=== PATIENT | female | born 1990 | race Hispanic/Latino ===

== ENCOUNTER 2020-04-08 08:00 | Inpatient (IN) | payer OTHER ==
[2020-04-08] MEDS ORDERED: CARBOPROST TROME 250 MCG/ML IM PRN (15:26)
[2020-04-08] MEDS ORDERED: PROMETHAZINE INJ 25 MG/ML AMP IM PRN (15:26)
[2020-04-08] MEDS ORDERED: METHYLERGONOVINE 0.2MG/ML AMP IM PRN (15:26)
[2020-04-08] MEDS ORDERED: Ringers Lactate 1,000 ML IV PRN (15:26)
[2020-04-08] MEDS ORDERED: BUTORPHANOL 1 MG/ML INJ IV PRN (15:26)
[2020-04-08] MEDS ORDERED: Ringers Lactate 1,000 ML IV SCH (16:00)
[2020-04-08] MEDS ORDERED: OXYTOCIN/LR 20 UNIT/1,000 ML BAG IV SCH (16:00)
[2020-04-08] MEDS ORDERED: miSOPROStoL 100 MCG TAB ONE (17:04)
--- NOTE | 2020-04-09 10:43 | RAD REPORT ---
EXAM DESCRIPTION: RAD - Abdomen 1 View (KUB) - 04/09/2020 10:34 am CLINICAL HISTORY: /assess presentation FINDINGS: Cephalic presentation. Spine maternal left
[2020-04-09] MEDS ORDERED: CARBOPROST TROME 250 MCG/ML IM PRN (11:20)
[2020-04-09] MEDS ORDERED: PROMETHAZINE INJ 25 MG/ML AMP IM PRN (11:20)
[2020-04-09] MEDS ORDERED: BUTORPHANOL 1 MG/ML INJ IV PRN (11:20)
[2020-04-09] MEDS ORDERED: METHYLERGONOVINE 0.2MG/ML AMP IM PRN (11:20)
[2020-04-09] MEDS ORDERED: Ringers Lactate 1,000 ML IV PRN (11:20)
[2020-04-09] MEDS ORDERED: OXYTOCIN/LR 20 UNIT/1,000 ML BAG IV SCH (12:00)
[2020-04-09] MEDS ORDERED: Ringers Lactate 1,000 ML IV SCH (12:00)
[2020-04-09] MEDS ORDERED: HYDRALAZINE HCL 20 MG/ML VIAL IV ONE (12:05)
[2020-04-09 12:08] LABS: Urine Appearance CLOUDY; Urine Bilirubin NEGATIVE (NEG); Urine Blood NEGATIVE (NEG); Urine Color YELLOW; Urine Glucose NEGATIVE (NEG); Urine Protein 2+ (NEG); Urine Urobilinogen 0.2 mg/dL (0.2-1.0)
[2020-04-09 12:08] LABS: Basophils % 0.5 % (0-1.3); Hematocrit 37.3 % (36.0-45.0); Lymphocytes % 16.4 % (15.3-44.8); MPV 10.4 fL (7.6-11.3); RBC Red Blood Cell Count 4.26 M/uL (3.86-4.86)
[2020-04-09 12:25] LABS: Urine Microscopic Reflex ORDER UMIC
[2020-04-09 12:30] LABS: Urine Bacteria >50 /HPF (<20); Urine Culture Reflex Order REFLEXED; Urine RBC NONE SEEN /HPF (NONE SEEN); Urine Urothelial Cells <5 /HPF (NONE SEEN)
[2020-04-09 12:48] VITALS: BMI 39.3
[2020-04-09] MEDS ORDERED: LABETALOL 20 MG/4ML SYRINGE IV ONE ×2 (13:11→23:52)
[2020-04-09] MEDS ORDERED: MAGNESIUM SULF/STERILE WATER 1,000 ML IV SCH (14:00)
--- NOTE | 2020-04-09 15:44 | PREOPHP ---
Date of Admission: 04/09/2020 History Of Present Illness: This is a 29-year-old 2, para 1, diabetic during the , seen in consultation with Dr. Estrada who recommended delivery between 38 and 39 weeks. The patient is currently 38 and 1 or 2. She was breech in the office the other day, but overnight has switched to vertex and she has also progressed to 3 cm, although the cervix is very posterior. We have sent her to Labor and Delivery. She is on Pitocin. As soon as the baby gets a little bit further down, we wi ll rupture membranes and then deliver before the baby can switch again. Family History: Maternal uncle with brain cancer. Otherwise, really noncontributory. Allergies: NO ALLERGIES. Medications: vitamins prior to admission. Social History: Does not smoke. Physical Examination: HEENT: Clear. Pupils equal, round, reactive to light and accommodation. Conjunctivae well perfused . No oral, lingual, or buccal lesions. Chest and Lungs: Clear. Heart: Without murmurs, thrills, heaves, rubs. Breasts: Without masses on previous visits. Abdomen is term size. Baby is vertex at this point. Full labor talk given. Anticipate delivery asa etime later today. JESS/EMELIA Voice ID: [id number]
[2020-04-09] MEDS ORDERED: INFLUENZA VACCINE (for 3y+) 0.5 ML DOSE IMVAC ONE (16:00)
--- NOTE | 2020-04-09 17:21 | PN ---
Protein came back from the lab +2 protein that with her elevated blood pressure. She has minimal ernesto ma but some trace. We will start her on magnesium sulfate 4 g, loading dose 2 g an hour maintenance dose, get a level at 8 p.m. Full discussion with the patient has been. This is her second together, so this is unusual, but she knows that this is the most reasonable course of action consid ering what we are dealing with. She has absolutely no DELIVERY LEAD symptoms. JESS/MODPortia Voice ID: [id number] Report ID: [id number]
[2020-04-09] MEDS ORDERED: OXYTOCIN/LR 20 UNIT/1,000 ML BAG IV ONE (19:50)
[2020-04-09] MEDS ORDERED: FENTANYL CITR 100 MCG/2 ML IV ONE (21:27)
[2020-04-09] MEDS ORDERED: ROPIVACAINE HCL 100 ML IV PRN (21:27)
[2020-04-09] MEDS ORDERED: ROPIVACAINE HCL 0.2% 20ML AMP IV ONE (21:29)
[2020-04-09] MEDS ORDERED: LIDOCAINE 1% MPF 30 ML VIAL ONE (23:33)
[2020-04-09] MEDS ORDERED: CARBOPROST TROME 250 MCG/ML IM ONE (23:33)
[2020-04-09] MEDS ORDERED: METHYLERGONOVINE 0.2MG/ML AMP IM ONE (23:33)
[2020-04-09 23:35] LABS: RPR (Rapid Plasma Reagin) NON-REACT (NON-REACT)
[2020-04-09] MEDS ORDERED: LABETALOL HCL 100 MG/20 ML IV PRN (23:42)
[2020-04-10] MEDS ORDERED: Oxycodone HCl/Acetaminophen 1 TAB TAB PO PRN (00:37)
[2020-04-10] MEDS ORDERED: DOCUSATE NA/SENNA CONC 1 TAB PO PRN (00:37)
[2020-04-10] MEDS ORDERED: DIPHENHYDRAMINE 25 MG TAB/CAP PO PRN (00:37)
[2020-04-10] MEDS ORDERED: ACETAMINOPHEN 500 MG TAB PO PRN (00:37)
[2020-04-10] MEDS ORDERED: BISACODYL 10 MG RECTAL SUPP PR PRN (00:37)
[2020-04-10] MEDS ORDERED: IBUPROFEN 200 MG TAB PO PRN (00:37)
[2020-04-10] MEDS ORDERED: HEPATITIS B VACCINE (PEDI) 10 MCG/0.5 ML SYR IMVAC ONE (00:54)
[2020-04-10] MEDS ORDERED: OXYTOCIN/LR 20 UNIT/1,000 ML BAG IV SCH (01:00)
[2020-04-10] MEDS ORDERED: CEFAZOLIN/NS 1gm 1 GM/50 ML BAG IVPB ONE (01:19)
[2020-04-10] MEDS ORDERED: cloNIDine HCL 0.1 MG TAB PO ONE (01:20)
[2020-04-10] MEDS ORDERED: CEFAZOLIN/SWI 1gm 1 GM/10 ML SYR ONE (01:25)
[2020-04-10] MEDS ORDERED: CEFAZOLIN/SWI 1gm 1 GM/10 ML SYR IV ONE (01:30)
[2020-04-10] MEDS: PHENOBARBITAL 32.4 MG TABLET PO SCH ×3 (01:38→17:06)
[2020-04-10] MEDS: Oxycodone HCl/Acetaminophen 1 TAB TAB PO PRN (01:38)
[2020-04-10] MEDS ORDERED: PHENOBARBITAL 32.4 MG TABLET PO ONE (01:44)
--- NOTE | 2020-04-10 02:37 | PN ---
Patient is 7 cm, but still the baby is fairly high. It is difficult to tell the position of the baby . She does not have any back pain. She had an epidural but is not extremely comfortable at this poi nt. She is on 22 milliunits and yodit very firmly every 2-3 minutes. We will institute pelvic rocks. Baby looks good. The patient said her first baby was over 8 pounds and it was a very rapid delivery. Exactly what is holding the baby up at this point is difficult to say. We will see what t ype of progress we will make in the next hour or two, but I would expect rapid descent and delivery o f the baby and, if we do not get rapid progress, we may end up with a . Full discussion with the patient and . JESS/EMELIA Voice ID: [id number] Report ID: [id number]
--- NOTE | 2020-04-10 02:49 | OP ---
Surgeon: Edgardo Clinton MD Lynda Maddox is a 29-year-old 2, para 1, gestational diabetic, followed in consultation w aneesh Stark, high-risk analyst at [facility]. The patient was scheduled for induction at 38 weeks, but the baby was breech. The next day, the baby was vertex and we decided to proceed at that point. She was 3 cm on admission, but very posterior. Rupture of membranes at appro ximately 3.5 cm. Clear fluid. The patient progressed slowly during the day. Received Stadol 1 mg I V, Phenergan 25 mg IM. Later she requested and received epidural anesthesia, but this did not really work very effectively. After achieving 7-8 cm, the patient went rapidly to complete. Second stage of about 20 minutes. Spontaneous vaginal delivery of an 8 pounds 2 ounces female, Apgars 8 and 9. M ild shoulder dystocia. Flexion of the legs affected delivery. One small first-degree laceration jus t below the clitoris. Two stitches, 2-0 chromic. Local infiltration. One [id number] stitch at the posterior fourchette. Schultze delivery of the placenta, which inspected and noted to be large, but otherwise normal and intact. Estimated blood loss is thus far 250 cc or less. The patient devel oped hypertension and proteinuria. Minimal edema. No CRYOGENICS REPAIRER symptoms, but was started on magnesium sul fate. She had to be given Apresoline 2 times during the labor for systolics that exceeded 165. As s oon as the baby was born, first blood pressure was 121/84. We will start patient on phenobarbital, b ut we will not go back to the magnesium sulfate. The patient tolerated all procedures well. Final Diagnoses: Intrauterine gestation, 38 weeks 2 days at time of delivery. Epidural anesthesia. Preeclampsia, now resolving. Mild shoulder dystocia. Nuchal cord x1. NBC/MODL Voice ID: [id number] Report ID: [id number]
--- NOTE | 2020-04-10 09:04 | PN ---
Vital signs are good. Blood pressure is basically back to normal. 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 Full dismissal instructions given. She of course will not go home until Pediatrics dismisses the Baby Lynda, prob ably be not until late tomorrow afternoon or evening. She is planning on IUD for control in e future. Tdap and flu shots offered. She is Rh positive, immune to rubella. Negative COVID. Nega tive strep. No post epidural problems. We will go over dismissal instructions again tomorrow, but a t this point, no complaints or problems, doing well. JESS/MODL Voice ID: [id number] Report ID: [id number]
[2020-04-10] MEDS: miSOPROStoL 100 MCG TAB PO SCH (20:30)
[2020-04-11] MEDS: Oxycodone HCl/Acetaminophen 1 TAB TAB PO PRN (00:09)
[2020-04-11] MEDS: miSOPROStoL 100 MCG TAB PO SCH ×4 (01:48→20:10)
[2020-04-11] MEDS ORDERED: cloNIDine HCL 0.1 MG TAB ONE ×2 (02:43→05:22)
[2020-04-11 04:26] LABS: Absolute Lymphocytes (CBC) 4.3 K/uL (0.7-4.9); Basophils % 0.5 % (0-1.3); Hematocrit 32.6 % (36.0-45.0); Lymphocytes % 23.6 % (15.3-44.8); RBC Red Blood Cell Count 3.64 M/uL (3.86-4.86)
[2020-04-11 04:45] VITALS: O2SAT 99
[2020-04-11 04:47] LABS: ALT/SGPT 49 U/L (12-78); AST/SGOT 87 U/L (15-37); Alkaline Phosphatase 122 U/L (45-117); BUN Blood Urea Nitrogen 9 mg/dL (7-18); Bicarbonate 26 mmol/L (21-32); Bilirubin Total 0.2 mg/dL (0.2-1.0); CKMB Creatine Kinase MB 6.7 ng/mL (0.3-3.6); Glucose Level 110 mg/dL (74-106); Potassium 4.6 mmol/L (3.5-5.1); Protein, Total 6.2 g/dL (6.4-8.2); Sodium Level 138 mmol/L (136-145)
[2020-04-11 04:59] LABS: Blood Morphology Comment NOT SEEN (NOT SEEN); Platelet Estimate ADEQ
[2020-04-11] MEDS ORDERED: cloNIDine HCL 0.1 MG TAB PO ONE (05:16)
--- NOTE | 2020-04-11 05:29 | EKG ---
Test Date: 2020-04-11 Test Time: 03:53:51 Clinical Mental Health Counselor: RT MEASUREMENT RESULTS: Intervals: Rate: 71 PA: 126 QRSD: 70 QT: 378 QTc: 410 [place]by: P: 23 PA: 126 QRS: 23 T: 43 INTERPRETIVE STATEMENTS: Normal sinus rhythm Normal ECG No previous ECG available for comparison Electronically Signed On 04-11-20 05:28:39 CDT by Garry Sanches
[2020-04-11] MEDS: LABETALOL HCL 100 MG TAB PO SCH ×2 (06:00→17:40)
[2020-04-11] MEDS: PHENOBARBITAL 32.4 MG TABLET PO SCH ×3 (06:05→18:00)
[2020-04-11] MEDS ORDERED: PHENOBARBITAL 32.4 MG TABLET PO ONE (06:18)
--- NOTE | 2020-04-11 08:44 | PN ---
The patient is yodit regularly. She is now 3.5 cm, ruptured membranes, clear fluid. Baby well applied at -1 station. Since admission, patient has had elevated systolic blood pressures which wer e normal in the office. Dipstick here in Labor and Delivery showed just trace protein. Urine specim en was sent and we are awaiting the protein from the laboratory. She has no edema. Her reflexes are normal. She has no COGNOS symptoms. We have given her 2 doses of Apresoline 5 mg, which momentarily b rings her blood pressure down, but then it goes right back to the 169 systolic range. If her blood p ressure remains elevated in the next 20 minutes, we will give her labetalol 10 mg and see how that af fects her. If the urine from the laboratory comes back showing protein, we may start her on magnesiu m sulfate, but that of course would not correct her blood pressure. At this point, I clinically doub t that she has preeclampsia, but we will certainly continue to monitor. I think she will make more r apid progress now that we have ruptured membranes. Full discussion with the patient has been. JESS/EMELIA Voice ID: [id number] Report ID: [id number]
--- NOTE | 2020-04-11 10:55 | PN ---
Delivered yesterday of an 8 pounds 2 ounces female uneventfully. Had 2 first-degree lacerations, 1 r equiring 2 stitches, 1 requiring 1 stitch. The patient developed hypertension and proteinuria. Had minimal edema. Reflexes were always normal. 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 however b lood pressures began to spike after they had initially been quite normal. The patient had been given Apresoline during the labor and after delivery clonidine x1. Last night, she reported having chest pains. She had a small hemorrhage in the right eye. The rapid response team was called. Her EKG wa s normal. Chest x-ray apparently has been read as normal. All of her labs were normal except a D-di handy, which of course would be elevated in a post delivery patient. She has had no pains in her legs and no shortness of breath. At this point, it does not appear that the patient has had any cardiac e vent nor she had pulmonary embolus, but blood pressure within the last 2 hours spiked to 190 systolic . She was again given clonidine and now her blood pressure is 121. She has no complaints. Says grzegorz t her chest does not hurt this morning. I have reinstituted the phenobarbital. I have ordered labet alol 100 mg twice a day, but we will hold off on that until her blood pressures begin to rise somewha t. The patient will probably be kept on phenobarbital for several days. The baby is under the bili lights, which would be expected as there was mild shoulder dystocia and some bruising of the baby's f bijal. The patient herself though is stable this morning. She has been evaluated by the rapid respons e team and they have no diagnosis other than what I have stated probably preeclampsia. Continue to m onitor today. Possibly home tomorrow. JESS/EMELIA Voice ID: [id number] Report ID: [id number]
--- NOTE | 2020-04-11 13:04 | RAD REPORT ---
EXAM DESCRIPTION: RAD - Chest Single View - 04/11/2020 4:29 am CLINICAL HISTORY: The patient is 29 years old and is Female; chest pain TECHNIQUE: Single portable upright view of the chest. COMPARISON: No relevant prior studies available. FINDINGS: Lungs: Unremarkable. No consolidation. Pleural space: Unremarkable. No pneumothorax. Heart: Unremarkable. No cardiomegaly. Mediastinum: Unremarkable. Bones/joints: No acute fracture visualized. Upper abdomen: No free air in the visualized upper abdomen. IMPRESSION: No acute cardiopulmonary process identified. Electronically signed by: Jacquie Brar MD 04/11/2020 4:41 AM CDT Due to temporary technical issues with the PACS/Fluency reporting system, reports are being signed by the in house radiologist without review as a courtesy to ensure prompt reporting. The interpreting r adiologist is fully responsible for the content of the report.
[2020-04-12] MEDS: miSOPROStoL 100 MCG TAB PO SCH ×2 (04:00)
[2020-04-12] MEDS: PHENOBARBITAL 32.4 MG TABLET PO SCH ×2 (06:00)
--- NOTE | 2020-04-12 09:03 | DS ---
Hospital Course: Lynda Maddox is a 29-year-old female 2, para 1, followed antepartum wit h association with Dr. Stark, high-market risk manager at [facility] for diabetes. Heladio landaverde was noted to be breech in the office, but the next day was noted to be vertex, was sent to Labo r and Delivery at 38 weeks and 2 days for induction to prevent section. Patient delivered o f an 8 pounds 2 ounces female, Apgars 8, 9. Epidural anesthesia supplemented with local as the epidu ral was not working very well. Two small first-degree laceration, 2 stitches, one stitch in the othe r. Nuchal cord loosely x1 noted with the baby. Schultze delivery of the placenta less than 250 mL b lood loss. Patient is Rh positive, immune to Rubella. COVID negative. Beta-strep negative. During the labor, patient was noted to have increased blood pressure and protein in the urine, minimal kuldeep a. Reflexes were normal, but she was started on magnesium sulfate secondary to suspicion of preeclam psia. Blood pressure is elevated to the point during the labor were 2 to 3 times. Patient was given Apresoline 5 mg IV. After delivery, blood pressure went even higher to 190 systolic at one point. She was given subsequently 2 doses of clonidine 0.1 mg, which caused the blood pressure to come back into a more normal range. Patient several hours after delivery reported chest pains. Chest x-ray, E KG, all lab indices were normal. D-dimer of course was elevated, but this would be expected in a pat ient, who just delivered a baby. There was no suspicion at this point of pneumonia, cardiac event, o r embolus. The patient subsequently has no pain, is feeling quite well at this point. She has passe d 2 blood clots that she was concerned about, but has had minimal bleeding in between and the blood c lots were size of a ping-pong ball, the last one. Patient has not been ambulating well. This has st ressed her because she is a large woman. She needs to ambulate to prevent problems. She was given C ytotec 100 mcg every 4 hours for 4 doses and then has been ordered to have another 3 doses 1 every 4 hours as well. H and H were checked after the baby was born and had dropped, but not substantially. Patient is feeling well. No dizziness. Her blood pressures when she is resting are down into the 1 00 to 110 range systolic without any medications. When patient walks, the blood pressure goes up to the 140 to 150 range, but still patient is completely asymptomatic. She was started on phenobarbital at 1 time, but I do not think she needs that anymore and thus far has not received any blood pressur e medicines. Her blood pressure is still somewhat labile, so we will continue to monitor that. Baby is under the bili light, so we will have the opportunity to take the patient's blood pressure severa l more times before she is dismissed. At this point, I do not think she needs phenobarbital or blood pressure medications. We will bring her back to the office next week for blood pressure check. Shanti l instructions given. Tdap and flu shot offered. No post epidural problems. No analgesics requeste d. Final Diagnoses: Intrauterine gestation, 38 weeks 2 days at delivery, gestational diabetes, epidural anesthesia; mild shoulder dystocia; preeclampsia, now resolving. Mild uterine hypotonus. HÉCTORC/MODL Voice ID: [id number] Report ID: [id number]
[2020-04-12] MEDS ORDERED: Tdap (Diph,Pertuss(Acell),Tet Vac) 0.5 ML SYR IMVAC ONE (11:17)
[2020-04-12] MEDS ORDERED: INFLUENZA VACCINE (for 3y+) 0.5 ML DOSE IMVAC ONE ×2 (11:34→11:36)
[2020-04-12 11:38] VITALS: TEMP 98.1
[2020-04-12 13:10] VITALS: BP 110/68
[2020-04-12 22:05] LABS: HBsAG Nonreactive (Nonreactive)
== END 2020-04-12 13:33 | disposition home or self-care (01) | DRG 807 ==
LOC: UNDOADMIN 15:20 → 2ND-WC 15:20
PROVIDERS: ADMIT Specialist; ATTEND Specialist
PROC: 10E0XZZ Delivery of Products of Conception, External Approach (ICD-10-PCS; principal; 2020-04-10)
PROC: 10907ZC Drainage of Amniotic Fluid, Therapeutic from Products of Conception, Via Natural or Artificial Opening (ICD-10-PCS; 2020-04-10)
PROC: 0HQ9XZZ Repair Perineum Skin, External Approach (ICD-10-PCS; 2020-04-10)
DX: O71.89 Other specified obstetric trauma (principal); Z37.0 Single live birth; O71.4 Obstetric high vaginal laceration alone; O24.429 Gestational diabetes mellitus in childbirth, unspecified control; O66.0 Obstructed labor due to shoulder dystocia; O14.94 Unspecified pre-eclampsia, complicating childbirth; O62.2 Other uterine inertia; Z3A.38 38 weeks gestation of pregnancy; Z23 Encounter for immunization; Z20.828 Contact with and (suspected) exposure to other viral communicable diseases
CPT/HCPCS: 36415; 71045; 74018; 80053; 81003; 81015; 82553; 83735; 85014; 85025; 85379; 86592; 86850; 86900; 86901; 87086; 87088; 87340; 90471; 90715; 90744; 93005; J0360; J0595; J0690; J2210; J2550; J2590; J2795; J3010; J3475; J7120; Q2035; U0003